=== PATIENT | male | born 1980 | race Caucasian/White ===

== ENCOUNTER 2024-03-25 18:16 | Emergency (ER) | payer MEDICAID, SELFPAY ==
[2024-03-25 18:17] VITALS: BP 130/97; PULSE 130; RESP 18; TEMP 36.3; O2SAT 98; BMI 39.4
--- NOTE | 2024-03-25 18:22 | EKG12_ITS ---
Test Reason : CP Blood Pressure : / mmHG Vent. Rate : 122 BPM Atrial Rate : 122 BPM P-R Int : 156 ms QRS Dur : 090 ms QT Int : 328 ms P-R-T Axes : 034 -55 034 degrees QTc Int : 467 ms Sinus tachycardia Pulmonary disease pattern Left anterior fascicular block Abnormal ECG Confirmed by QUINTON LARKIN, FRANKLIN ([id number]), visual effects editor LEONOR LEON ([id number]) on 03/27/2024 9:34:58 AM Referred By: Confirmed By:FRANKLIN ALCANTARA MD
--- NOTE | 2024-03-25 18:33 | RAD_ITS ---
STUDY: X-RAY CHEST REASON FOR EXAM: Male, 43 years old. Chest pain TECHNIQUE: Single AP portable view of the chest. COMPARISON: None. FINDINGS: The lungs are clear and expanded. There is no demonstrated pleural abnormality. Normal size heart. Normal mediastinum and brown. Normal visualized pulmonary arteries. Normal visualized aortic arch and descending thoracic aorta. Normal visualized thoracic spine. Normal visualized ribs, clavicles, and shoulders. There is no demonstrated abnormality of the visualized soft tissue structures of the upper abdomen. RAD/Chest 1 View (Portable) IMPRESSION: Normal x-ray examination of the chest. Electronically Signed: Hever Norris MD at 19:55 EDT ,
[2024-03-25 18:44] LABS: Absolute Lymphocyte Count 2.28 X10^3/uL (0.83-4.51); Absolute Neutrophil Count 6.9 X10^3/uL (2.0-7.7); Basophil# 0.06 X10^3/uL; Basophil% 0.6 % (0-1); Eosinophils% 1.9 % (0-5); Hematocrit 44.8 % (40-54); Hemoglobin 15.4 g/dL (13.0-16.5); Lymphocyte # 2.28 X10^3/ul (0.83-4.51); Lymphocyte % 22.1 % (19-41); Mean Corp Hgb Conc 34.4 g/dL (32-36); Mean Corpuscular Hgb 28.1 pg (27.0-32.0); Mean Corpuscular Volume 81.8 fL (80-94); Mean Platelet Vol. 11.2 fl (6.2-12.0); Monocyte# 0.88 X10^3/uL; Monocyte% 8.5 % (0-10); NRBC Flagged by Analyzer 0 % (0-5); Neutrophil # 6.85 X10^3/uL (2.7-7.7); Neutrophil % 66.5 % (47-70); Platelet Count 120 K/mm3 (150-450); RBC Distribution Width CV 12.4 % (11.6-14.6); RBC Distribution Width SD 37.2 fl (35.1-43.9); Red Blood Count 5.48 M/mm3 (4.6-6.2); White Blood Count 10.3 K/mm3 (4.4-11.0)
--- NOTE | 2024-03-25 19:01 | ED.VIS.CHEST ---
HPI History of Present Illness Chief Complaint: Chest Pain Informant: patient Onset/Context/Timing Onset: Today and Hours (3-4) Activity at onset: sudden Timing: Intermittent Quality: Positive for Stabbing Location: Left Chest Worsened By: Nothing Relieved By: Nothing Associated Symptoms: Positive for Nausea, Dyspnea and Lightheadedness; Negative for Vomiting, Diaphoresis, Cough, Fever, Acid Reflux or Palpitations Narrative Narrative: Patient presents with chest pain that began today. Patient states it came on rather suddenly. Patient states it lasted approximately 3 to 4 hours. Patient describes it as stabbing. Patient states it is over the left side of his chest. Patient states nothing made it better and nothing made it worse. Patient admits to some nausea but denies any vomiting. Patient admits to some shortness of breath and lightheadedness with the pain. Patient denies any palpitations. Patient denies any diaphoresis. Patient denies any cough or fever. Patient denies any cardiac or PE risk factors. CVD Risk Factors: Negative for Hypertension, Diabetes, Hypercholesterolemia, Family History 1' </=55 or Smoking PE Risk Factors: Negative for Recent Travel/Surgery, Recent Immobilization, Prior DVT or PE, Cancer or OCP + Smoking + >/=35 PFSH PFSH Medical History (Updated 03/25/24 @ 22:[address] Clement Abernathy DO) Psoriasis Home Medications ?Medication ?Instructions ?Recorded ?Last Taken ?Type NK 03/25/24 Unknown History Allergy/AdvReac Type Severity Reaction Status Date / Time No Known Allergies Allergy Verified 03/25/24 18:19 Surgical History no surgical history no surgical history Social History Smoking Status: Former smoker ROS ROS ED Constitutional Constitutional ED: Denies chills or fever(s) Eyes Eyes: Reports blurry vision; Denies change in vision ENT ENT ED: Denies rhinorrhea or sore throat Cardiovascular Cardiovascular: Reports chest pain; Denies palpitations Respiratory/Chest Respiratory/Chest: Reports dyspnea; Denies cough Gastrointestinal Gastrointestinal: Reports nausea; Denies vomiting Genitourinary Genitourinary ED: Denies dysuria or hematuria Musculoskeletal Musculoskeletal: Reports back pain; Denies neck pain Integumentary Reports rash; Denies abscess Neurologic Neurologic: Denies headache(s) or weakness Allergic/Immunologic Allergic/Immunologic ED: Denies mouth swelling or urticaria EXAM Physical Exam Const Vital Signs: 03/25/24 18:17 03/25/24 19:00 03/25/24 19:30 Temperature 97.3 F L Temperature Source Temporal Pulse Rate 130 H 108 H Respiratory Rate 18 18 Blood Pressure 130/97 H 140/96 H Blood Pressure Mean 108 110 Pulse Ox 98 96 Oxygen Delivery Method Room Air Room Air Room Air 03/25/24 20:00 03/25/24 21:00 03/25/24 22:00 Temperature Temperature Source Pulse Rate 99 100 89 Respiratory Rate 18 18 16 Blood Pressure 134/100 H 140/87 H 141/84 H Blood Pressure Mean 111 104 103 Pulse Ox 100 95 98 Oxygen Delivery Method Room Air Room Air Room Air 03/25/24 22:47 Temperature 97.9 F Temperature Source Pulse Rate 90 Respiratory Rate 19 H Blood Pressure 141/84 H Blood Pressure Mean 103 Pulse Ox 98 Oxygen Delivery Method Positive well nourished and well developed General Appearance ED: well developed and NAD HEENT Reports moist mucous membranes Neck supple and no JVD Resp normal respiratory effort and clear to auscultation bilaterally Cardio regular rate and regular rhythm GI soft to palpation, non-tender and non-distended Extremity General Extremety ED: Negative for edema or tenderness General Extremity: Negative for edema Neuro oriented x3, CN's II-XII intact bilaterally and no sensory deficits noted Sensorium / Orientation: awake and alert Motor Exam: strength 5/5 throughout Skin Rashes: rashes noted Generalized Narrative: There is an erythematous macular scaly rash that is consistent with psoriasis. MDM MDM MDM Narrative Medical decision making narrative: Differential diagnosis includes cardiac dysrhythmia, cardiac ischemia, pneumonia, pneumothorax, electrolyte abnormality, musculoskeletal pain, and anxiety. Patient has a Wells score of 1.5. I do not feel this is from a pulmonary embolism. EKG will be obtained to assess for cardiac dysrhythmia and cardiac ischemia. Chest x-ray will be obtained to assess for pneumonia and pneumothorax. CBC will be obtained to assess for leukocytosis and anemia. Basic metabolic profile will be obtained to assess for electrolyte abnormality and renal function. High-sensitivity troponin will be obtained to assess for cardiac ischemia. Lab Data Attestation: I reviewed the patient's lab results. Lab results narrative: CBC was reviewed and was within normal limits. Basic metabolic profile was reviewed. Sodium was slightly low at 132. Glucose was elevated at 284. The remainder was within normal limits. High-sensitivity troponin was reviewed and was normal at 13. 2-hour repeat high-sensitivity troponin was reviewed and was normal at 13. Labs: Laboratory Results - last 24 hr 03/25/24 03/25/24 18:29 20:34 WBC 10.3 RBC 5.48 Hgb 15.4 Hct 44.8 MCV 81.8 MCH 28.1 MCHC 34.4 RDW Std Deviation 37.2 RDW Coeff of Manav 12.4 Plt Count 120 L MPV 11.2 Immature Gran % (Auto) 0.400 Neut % (Auto) 66.5 Lymph % (Auto) 22.1 [place] % (Auto) 8.5 Eos % (Auto) 1.9 Baso % (Auto) 0.6 Absolute Neuts (auto) 6.9 Absolute Lymphs (auto) 2.28 Nucleated RBC % 0 Sodium 132 L Potassium 3.6 Chloride 101 Carbon Dioxide 23.0 Anion Gap 8 BUN 7 Creatinine 0.99 Estim Creat Clear Calc 129.93 Est GFR (MDRD) Af Amer 106 Est GFR (MDRD) Non-Af 88 BUN/Creatinine Ratio 7.1 L Glucose 284 H Calcium 8.9 Troponin I High Sens 13 13 Radiography Chest X-Ray - ED: 1 View, Read by ED Physician, Read by Radiologist and No Acute Disease Diagnostic Testing: Clinical Impression(s) from Imaging Studies Chest X-Ray 03/25/24 18:33 IMPRESSION: Normal x-ray examination of the chest. Electronically Signed: Hever Norris MD at 19:55 EDT , Portable 1 view chest x-ray was obtained. On my independent interpretation, lung higgins are clear. There is normal cardiac silhouette. Bony thorax is normal. There is no acute process noted. Radiologist also interpreted the x-ray and agrees. EKG Initial EKG: Attestation: I personally reviewed and interpreted this EKG as follows: Interpretation: Sinus Tachycardia (122) and LAFB Comments: EKG was obtained. On my independent interpretation, it shows sinus tachycardia with a rate of 122. SD interval was normal at 156 ms. QRS interval is normal at 90 ms. QTc interval was normal at 467 ms. There is left axis deviation at -55. There is left anterior fascicular block. There is no acute ST or T wave changes noted. Prior EKG tracings: not available for review Prior: No Prior Treatment and Re-Evaluation :: Patient was advised of his findings. Patient was advised that his blood sugar was mildly elevated. Patient was instructed to continue to monitor this. Patient was instructed to follow-up with his primary care physician in 3 to 5 days for further evaluation. Patient understood and was agreeable with the plan. All questions were answered. Discharge Plan Triage Chief Complaint: Chest Pain ED Provider: Clement Abernathy Dx/Rx/DC Orders Clinical Impression: Chest pain, Hyperglycemia Instructions: ED Chest Pain, Uncertain Cause, ED Hyperglycemia New Poss Diabetes Prescriptions: No Action NK Primary Care Provider: Care Physician,No Primary Referrals: Renee Sosa MD [Med Staff - [employer]] - 5-7 Days Care Physician,No Primary [Primary Care Provider] - Print Language: Kinyarwanda Disposition Disposition: Home, Self Care
[2024-03-25 19:30] VITALS: BP 140/96; PULSE 108; RESP 18; O2SAT 96
[2024-03-25 19:36] LABS: Anion Gap 8 (5-15); BUN 7 mg/dL (7-18); BUN/Creat Ratio 7.1 RATIO (10-20); Calcium,Total 8.9 mg/dL (8.5-10.1); Chloride 101 mmol/L (98-107); Creatinine, Serum 0.99 mg/dL (0.70-1.30); EST Glomerular Filtration Rate 88 mL/min (>60); Est Glom Filt Rate - Afr Amer 106 mL/min (>60); Estimated Creatinine Clearance 129.93 ml/min; Glucose 284 mg/dL (74-106); Potassium 3.6 mmol/L (3.5-5.1); Sodium Level 132 mmol/L (136-145); Troponin-I HS (w/2H Reflex) 13 pg/mL (3.0-78.0)
[2024-03-25 20:00] VITALS: BP 134/100; PULSE 99; RESP 18; O2SAT 100
[2024-03-25 20:36] LABS: Reflex Troponin-HS? (from REC) Y
[2024-03-25 21:00] VITALS: BP 140/87; PULSE 100; RESP 18; O2SAT 95
[2024-03-25 21:02] LABS: Troponin-I HS 13 pg/mL (3.0-78.0)
[2024-03-25 22:00] VITALS: BP 141/84; PULSE 89; RESP 16; O2SAT 98
[2024-03-25 22:47] VITALS: BP 141/84; PULSE 90; RESP 19; TEMP 36.6; O2SAT 98
== END 2024-03-25 23:02 | disposition home or self-care (01) ==
PROVIDERS: Emergency Provider Emergency Medicine; Visit Provider Emergency Medicine
DX: R07.9 Chest pain, unspecified (principal); Z87.891 Personal history of nicotine dependence; R73.9 Hyperglycemia, unspecified
CPT/HCPCS: 71045; 80048; 84484; 85025; 93005; 99284; A4216